=== PATIENT | female | born 1995 | race Caucasian/White ===

== ENCOUNTER 2017-01-19 15:34 | Emergency (ER) | payer OTHER | END 2017-01-19 16:35 | disposition home or self-care (01) | LOC: FER 15:34 | DX: K05.219 Aggressive periodontitis, localized, unspecified severity (principal) ==

== ENCOUNTER 2017-04-07 15:54 | Emergency (ER) | payer OTHER ==
[2017-04-07 17:19] LABS: AMPHETAMINES POSITIVE (NEGATIVE); BARBITURATES NEGATIVE (NEGATIVE); BENZODIAZEPINES NEGATIVE (NEGATIVE); COCAINE NEGATIVE (NEGATIVE); MARIJUANA (THC) POSITIVE (NEGATIVE); METHADONE NEGATIVE (NEGATIVE); TRICYCLIC ANTIDEPRESSANT NEGATIVE (NEGATIVE)
== END 2017-04-07 19:40 | disposition home or self-care (01) ==
LOC: FER 15:54
PROVIDERS: Emergency Medicine
DX: S82.891A Other fracture of right lower leg, initial encounter for closed fracture (principal); M54.5 Low back pain; W13.4XXA Fall from, out of or through window, initial encounter; Y92.009 Unspecified place in unspecified non-institutional (private) residence as the place of occurrence of the external cause
CPT/HCPCS: 70450; 71010; 72040; 72100; 72170; 73600; 80305; 84703; J1885; J2270

== ENCOUNTER 2021-03-09 09:14 | Emergency (ER) | payer OTHER ==
[~2021-03-09 09:14] MED LIST: AMOXICILLIN500 MG PO; BACTRIM DS TAB1 EACH PO; BACTROBAN NASAL1 GM TOP; MOTRIN600 MG PO; NORCO 5-325 TA1 EACH PO; PERCOCET 5-3251 EACH PO; PHENERGAN25 M1 PO; PREDNISONE 10MG10 MG PO; ZOFRAN8 MG PO
[2021-03-09] MEDS ORDERED: DICLOFENAC SODI75 MG PO (10:07)
== END 2021-03-09 10:31 | disposition home or self-care (01) ==
LOC: FER 09:14
DX: S93.601A Unspecified sprain of right foot, initial encounter (principal); X50.0XXA Overexertion from strenuous movement or load, initial encounter
CPT/HCPCS: 73630